=== PATIENT | female | born 1985 | race Two or more races ===

== ENCOUNTER 2024-12-15 07:24 | Day surgery (SDC) | payer BC ==
[2024-12-09 10:21] VITALS: BMI 27.0
[~2024-12-15 07:24] MED LIST: ONDANSETRON 4 MG/2 ML VIAL IVPUSH PRN
[2024-12-15] MEDS ORDERED: LACTATED RINGERS SOLUTION 1,000 ML IV SCH (07:30)
[2024-12-15] MEDS ORDERED: PROPOFOL 20 ML ONE ×2 (08:51→09:14)
[2024-12-15] MEDS ORDERED: IBUPROFEN 600 MG TABLET (FP) PO PRN (08:51)
[2024-12-15] MEDS ORDERED: ONDANSETRON 4 MG/2 ML VIAL IVPUSH PRN (08:51)
[2024-12-15] MEDS ORDERED: IBUPROFEN 800 MG/8 ML IJ IVPB PRN (08:51)
[2024-12-15] MEDS ORDERED: MIDAZOLAM HCL 2 MG/2 ML SINGLE DOSE VIAL ONE (08:51)
[2024-12-15] MEDS ORDERED: metroNIDAZOLE 500 MG PREMIXED 1,000 MG/200 ML MG IVPB ONE (08:57)
[2024-12-15] MEDS ORDERED: LIDOCAINE HCL/PF 2% SDV 5ML VIAL ONE (08:57)
[2024-12-15] MEDS ORDERED: DEXAMETHASONE SOD PHOSPHATE 4 MG/1 ML VIAL ONE (08:57)
[2024-12-15] MEDS ORDERED: ELECTROLYTE-148 SOLN 1,000 ML IV SCH (09:00)
[2024-12-15 11:16] VITALS: RESP 16
[2024-12-15 11:59] VITALS: BP 125/72; PULSE 60; TEMP 97.5
== END 2024-12-15 12:10 | disposition home or self-care (01) ==
LOC: JASU-SURG 07:24
PROVIDERS: ATTEND Obstetrics & Gynecology
PROC: 0UB98ZZ Excision of Uterus, Via Natural or Artificial Opening Endoscopic (ICD-10-PCS; principal; 2024-12-15 08:30)
DX: N93.9 Abnormal uterine and vaginal bleeding, unspecified (principal); N84.0 Polyp of corpus uteri
CPT/HCPCS: 81025; 88305-TC; 94760